=== PATIENT | male | born 1945 | race Caucasian/White ===

== ENCOUNTER 2017-06-17 12:29 | Emergency (ER) | payer MEDICARE, OTHER ==
[~2017-06-17] VITALS: Ht 193 cm; Wt 120.0 kg
[~2017-06-17 12:29] MED LIST: /ESOM40CA PO; /WARF5TA OR; ALDA25TA2 PO; ASPI81TA85 PO; BABY81CH PO; CIPR500T3 PO; EUCECRE2 TOP; FLAG500T PO; FURO20TA2 PO; INSUDET SC; INSUH10VL SC; KEFL500C17 PO; LASI20TA PO; LASI40TA OR; LISI10TA4 OR; LOPR1TAB6 PO; LOPR1TAB7 PO; LORT5TAB PO; METF500T13 PO; METF500T4 OR; METO75TA PO; NATU400T PO; NEXI40CA PO; NIAC500T OR; NICO21DI4 TD; No Historical Meds; OXYC-141 PO; PAIN325T PO; POTA20TA OR; SILVADENE TOP; SIMV20TA2 OR; SPIR25TA2 PO; SUDA30TA PO; TYLE325T5 PO; VICO5TAB OR; VITA500T PO; VITAMIN D50000 UNT OR; mycostatin powder TOP
[2017-06-17] MEDS ORDERED: ASPIRIN 81 MG CHEW TABLET PO ONE (13:15)
[2017-06-17 13:37] LABS: BASO # 0.1 10^3/uL (0.0-0.2); BASO % 0.7 % (0.0-1.0); EOS # 0.4 10^3/uL (0.0-0.50); EOS % 3.2 % (0.0-3.0); IMMATURE GRANULOCYTE % 0.3 % (0-0); LYMPH # 2.3 10^3/uL (1.5-4.5); LYMPH % 18.5 % (24.0-44.0); MEAN CORPUSCULAR HEMOGLOBIN 29.8 pg (27.0-33.0); MEAN CORPUSCULAR HGB CONC 35.3 g/dl (32.0-36.5); MEAN CORPUSCULAR VOLUME 84.3 fl (80.0-96.0); MONO # 0.8 10^3/uL (0.0-0.8); MONO % 6.2 % (0.0-5.0); NEUTROPHILS # 8.8 10^3/uL (1.8-7.7); NEUTROPHILS % 71.1 % (36.0-66.0); PLATELET COUNT, AUTOMATED 279 10^3/uL (150-450); RED CELL DISTRIBUTION WIDTH 12.4 % (11.5-14.5); WHITE BLOOD COUNT 12.3 10^3/uL (4.0-10.0)
[2017-06-17] MEDS ORDERED: NS 1,000 ML IV ONE (13:45)
[2017-06-17] MEDS ORDERED: METOPROLOL 5 MG/5 ML VIAL IV SCH (13:45)
[2017-06-17 13:59] LABS: ALBUMIN 3.3 GM/DL (3.2-5.2); ALKALINE PHOSPHATASE 75 U/L (45-117); ALT/SGPT 11 U/L (12-78); ANION GAP 9 MEQ/L (8-16); AST/SGOT 14 U/L (7-37); BILIRUBIN,DIRECT 0.3 MG/DL (0.0-0.2); BLOOD UREA NITROGEN 8 MG/DL (7-18); CARBON DIOXIDE LEVEL 26 MEQ/L (21-32); CHLORIDE LEVEL 100 MEQ/L (98-107); CREATININE FOR GFR 0.69 MG/DL (0.70-1.30); GLOMERULAR FILTRATION RATE > 60.0 (>42); GLUCOSE, FASTING 283 MG/DL (83-110); MAGNESIUM LEVEL 1.7 MG/DL (1.8-2.4); POTASSIUM SERUM 3.9 MEQ/L (3.5-5.1); SODIUM LEVEL 135 MEQ/L (136-145); THYROXINE (T4) 10.6 UG/DL (4.5-12.0); TOTAL PROTEIN 7.4 GM/DL (6.4-8.2)
[2017-06-17 14:03] VITALS: BP 120/60
[2017-06-17 14:07] LABS: T UPTAKE 33 % (33-40)
--- NOTE | 2017-06-17 14:48 | REP ---
AP portable chest: 06/17/2017 Clinical history: Chest pain. Comparison: 04/04/2016, 03/30/2016. Findings: Somewhat lordotic portable chest seen with slight elevation of the left diaphragm. Some minor basilar atelectatic change just above that diaphragm. There is venous hypertension. I see no keisha edema. No dense consolidation or parenchymal mass nor any visible effusion. The aorta is mildly tortuous but without aneurysm. Airway is intact. No gross cardiomegaly. Impression: 1. Pulmonary venous hypertension with vascular engorgement but no keisha edema, dense consolidation or pleural effusion. There is some minor atelectatic change above the left diaphragm. Signed by Ebenezer Galeana MD 06/17/2017 08:32 P
[2017-06-17] MEDS ORDERED: METO1TAB32 PO (15:30)
--- NOTE | 2017-06-17 15:41 | ECGEPIP ---
Stationary ECG Study [facility] [place] - ED Test Date: 2017-06-17 Pat Name: ROMMEL ALFORD Department: Room: - Gender: M [employer] [id number] Requested By: SANJAY Armas Order Number: [id number] Reading MD: Georgia Laguna Measurements Intervals [place] Rate: 141 P: [place]: 0 QRS: 245 QRSD: 147 T: 12 QT: 335 QTc: 513 Interpretive Statements ATRIAL FIBRILLATION WITH RAPID VENTRICULAR RESPONSE MARKED RIGHT AXIS DEVIATION RIGHT BUNDLE BRANCH BLOCK NSTTW ABNORMALITY SIMILAR 03/31/16 Electronically Signed On 06-17-2017 15:41:34 EST by Georgia Laguna
[2017-06-17 15:50] VITALS: BP 116/53
== END 2017-06-17 15:48 | disposition home or self-care (01) ==
LOC: M ED 12:29
DX: I48.91 Unspecified atrial fibrillation (principal); F33.9 Major depressive disorder, recurrent, unspecified; G62.9 Polyneuropathy, unspecified; E78.00 Pure hypercholesterolemia, unspecified; Z79.899 Other long term (current) drug therapy; Z79.82 Long term (current) use of aspirin; F17.210 Nicotine dependence, cigarettes, uncomplicated